=== PATIENT | male | born 1975 | race Caucasian/White ===

== ENCOUNTER → 2019-02-26 | Outpatient (REF) | payer MEDICARE ==
[2015-02-21 10:47] VITALS: BMI 21.0
[~2019-02-26] MED LIST: ACID REFLUX MED; ALBU8.5H12 IH; CALC300T PO; CYCL10TA29 PO; FISH OIL1 CAP PO; IBU600 PO; IBUP600T22 PO; MULT-1335 PO; PAN40 PO; PER PO
== END ==
LOC: ZZSENDIN 14:37
PROVIDERS: ATTEND Physician Assistant
DX: M25.571 Pain in right ankle and joints of right foot (principal)
CPT/HCPCS: 84550

== ENCOUNTER → 2019-03-14 | Outpatient (CLI) | payer MEDICARE ==
[2015-02-21 10:47] VITALS: BMI 21.0
--- NOTE | 2019-03-14 14:55 | RADIOLOGY IMAGING REPORT ---
FACILITY: [facility] PATIENT NAME: Dandre Miranda : 1975 MR: [id number] V: [id number] EXAM DATE: ORDERING PHYSICIAN: TAYLOR EID TECHNOLOGIST: Location: [facility] Patient: Dandre Miranda : 1975 Visit/Account:[id number] Date of Sevice: 03/14/2019 FOOT 2 VIEW RIGHT HISTORY: Pain in right foot ADDITIONAL HISTORY: None. COMPARISON: 06/23/2014 FINDINGS: 2 views were obtained. Alignment is anatomic. Joint spaces are well-maintained. There is no eviden ce of acute or subacute fracture. No periosteal reaction or cortical thickening to suggest a stress fracture although if this were of concern, bone scan could be considered.. Tarsometatarsal joints an d intertarsal joints are well-maintained. There is no significant plantar posterior calcaneal spur. No osteophytes or erosions identified. There are no lytic or sclerotic bony lesions. IMPRESSION: 1. No evidence of acute or subacute fracture. There is no plain radiographic evidence of a stress f racture. 2. No significant degenerative changes and no evidence of an erosive or inflammatory arthritis. Report Dictated By: Marina Smith MD at 03/14/2019 2:19 PM Report E-Signed By: Marina Smith MD at 03/14/2019 2:50 PM WSN:[id number]
== END ==
LOC: RAD 11:35
PROVIDERS: ATTEND Physician Assistant
DX: M25.571 Pain in right ankle and joints of right foot (principal)